=== PATIENT | male | born 2000 | race Two or more races ===

== ENCOUNTER 2023-09-09 15:57 | Emergency (ER) | payer MEDICAID, OTHER ==
[~2023-09-09] VITALS: Ht 177.8 cm; Wt 122.0 kg
[2023-09-09 17:21] VITALS: BP 138/90; PULSE 114; RESP 21; TEMP 99.1; O2SAT 98
[2023-09-09] MEDS ORDERED: PENI500T2 PO (17:26)
[2023-09-09] MEDS ORDERED: IBUP-1456 PO (17:26)
[2023-09-09] MEDS: cefTRIAXone SOD 1,000 MG VL IM ONE (17:45)
[2023-09-09] MEDS: IBUPROFEN 800 MG TAB PO ONE (17:45)
== END 2023-09-09 18:00 | disposition home or self-care (01) ==
LOC: ER 15:57
DX: J03.90 Acute tonsillitis, unspecified (principal); Z88.0 Allergy status to penicillin; Z88.6 Allergy status to analgesic agent
CPT/HCPCS: 96372; 99283; J0696